=== PATIENT | female | born 1960 | race Caucasian/White ===

== ENCOUNTER → 2025-05-25 15:06 | Outpatient (BNVA) | payer OTHER, SELFPAY | PROVIDERS: Visit Provider Family Medicine | DX: Z13.6 Encounter for screening for cardiovascular disorders (principal) | CPT/HCPCS: 80053; 85025 ==

== ENCOUNTER 2025-06-02 14:34 | Outpatient (CLI) | payer OTHER, SELFPAY ==
--- NOTE | 2025-06-02 14:37 | XR_ITS ---
WS: [id number] XR lumbar spine 2-3V* [id number] REASON FOR EXAM: chronic low back pain FINDINGS: Mild rotatory levoscoliosis. Mild straightening of the normal lordosis. No compression deformity or focal vertebral body lesion. Moderate narrowing of the L2-L3 disc space. Significant narrowing of the L4-L5 disc space. Mild narrowing of the L5-S1 disc space. No spondylolysis. No significant spondylolisthesis. XR/XR lumbar spine 2-3V* [id number] IMPRESSION: Moderate degenerative spondylosis.
--- NOTE | 2025-06-02 14:37 | XR_ITS ---
WS: [id number] XR hip RT 2-3V wo/w pel* [id number] REASON FOR EXAM: chronic right hip pain FINDINGS: No fracture or focal bone lesion. Mild narrowing of the posterior inferior joint space. Minimal narrowing of the anterior superior joint space. Mild to moderate subchondral sclerosis of the acetabulum with mild osteophytosis. Minimal osteophytosis of the femoral head. Superiorly the femoral head neck junction is somewhat convex. This configuration could potentiate femoral acetabular impingement with degeneration of the acetabular labrum and early development of osteoarthritis. XR/XR hip RT 2-3V wo/w pel* [id number] IMPRESSION: Mild osteoarthritis of the right hip with femoral head/neck configuration as ab ove.
== END 2025-06-02 14:35 | disposition home or self-care (01) ==
LOC: RAD 14:35
PROVIDERS: PCP Family Medicine; Visit Provider Family Medicine
DX: M16.11 Unilateral primary osteoarthritis, right hip (principal); M41.86 Other forms of scoliosis, lumbar region; M48.061 Spinal stenosis, lumbar region without neurogenic claudication; M48.07 Spinal stenosis, lumbosacral region
CPT/HCPCS: 72100; 73502